=== PATIENT | male | born 1965 | race Caucasian/White ===

== ENCOUNTER 2018-06-28 14:57 | Emergency (ER) | payer OTHER ==
--- NOTE | 2018-06-28 15:32 | EDPHY ---
H & P Stated Complaint: fall, +LOC Time Seen by Provider: 06/28/18 15:22 HPI/ROS: CHIEF COMPLAINT: Fall HISTORY OF PRESENT ILLNESS: The patient is a 52-year-old man who fell 10-15 feet off of a ladder. He states that he tried to talk and well but accidentally hit his head on the way down on a piece of wood. He felt dazed but did not lose consciousness. He does not have any hematoma or laceration has had does have lower neck pain around C7 and T1. He denies any chest pain or thoracic pain lumbar pain. He has been ambulatory. He also has a laceration to his right almendarez. He denies other injuries. No nausea vomiting. Severity: Moderate Modifying factors: None REVIEW OF SYSTEMS: Constitutional: denies: chills, fever, recent illness, recent injury EENTM: denies: blurred vision, double vision, nose congestion Respiratory: denies: cough, shortness of breath Cardiac: denies: chest pain, irregular heart rate, lightheadedness, palpitations Gastrointestinal/Abdominal: denies: abdominal pain, diarrhea, nausea, vomiting, blood streaked stools Genitourinary: denies: dysuria, frequency, hematuria, pain Musculoskeletal: denies: joint pain, muscle pain Skin: See HPI Neurological: denies: headache, numbness, paresthesia, tingling, dizziness, weakness Hematologic/Lymphatic: denies: blood clots, easy bleeding, easy bruising Immunologic/allergic: denies: HIV/AIDS, transplant 10 systems reviewed and negative except as noted EXAM: GENERAL: Well-appearing, well-nourished and in no acute distress. HEAD: Atraumatic, normocephalic. No visible hematoma or laceration EYES: Pupils equal round and reactive to light, extraocular movements intact, sclera anicteric, conjunctiva are normal. ENT: TMs normal, nares patent, oropharynx clear without exudates. Moist mucous membranes. NECK: Mild pain to C7 area, no tenderness or step-offs, Normal range of motion , LUNGS: Breath sounds clear to auscultation bilaterally and equal. No wheezes rales or rhonchi. HEART: Regular rate and rhythm without murmurs, rubs or gallops. ABDOMEN: Soft, nontender, normoactive bowel sounds. No guarding, no rebound. No masses appreciated. BACK: No CVA tenderness, no spinal tenderness, step-offs or deformities EXTREMITIES: Normal range of motion, no pitting or edema. No clubbing or cyanosis. NEUROLOGICAL: Cranial nerves II through XII grossly intact. Normal speech, normal gait. 5/5 strength, normal movement in all extremities, normal sensation , normal reflexes PSYCH: Normal mood, normal affect. SKIN: Laceration right almendarez Source: Patient Exam Limitations: No limitations - Personal History Current Tetanus/Diphtheria Vaccine: Yes Current Tetanus Diphtheria and Acellular Pertussis (TDAP): Yes - Medical/Surgical History Hx Asthma: No Hx Chronic Respiratory Disease: No Hx Diabetes: No Hx Cardiac Disease: No Hx Renal Disease: No Hx Cirrhosis: No Hx Alcoholism: No Hx HIV/AIDS: No Hx Splenectomy or Spleen Trauma: No Other PMH: denies - Family History Significant Family History: No pertinent family hx - Social History Smoking Status: Never smoked Alcohol Use: Sober Drug Use: None Constitutional: Initial Vital Signs Temperature (C) 36.5 C 06/28/18 15:01 Heart Rate 79 06/28/18 15:01 Respiratory Rate 16 06/28/18 15:01 Blood Pressure 156/92 H 06/28/18 15:01 O2 Sat (%) 98 06/28/18 15:01 O2 Delivery Mode Room Air Allergies/Adverse Reactions: No Known Allergies Allergy (Unverified 06/28/18 15:00) Home Medications: Medication Instructions Recorded NK [No Known Home Meds] 06/28/18 Medical Decision Making - Diagnostics Imaging Results: Imaging Impressions Head CT 06/28/18 15:31 Impression: Normal. No acute fracture or evidence of acute intracranial injury. Findings discussed with Emergency Department physician, Ole Mata on 2018, 16:43. Imaging: Discussed imaging studies w/ call worker Radiologist Procedures: Procedure: Laceration repair. Verbal consent was obtained from the patient. The 3 cm right almendarez laceration was anesthetized with 0.5% bupivacaine with epinephrine locally infiltrated. The wound was irrigated copiously according to protocol, draped and explored to its base. It was approximately 1 cm deep. There were no deep structures involved. No tendon, nerve, or vascular injury was identified when explored through full range of motion. No foreign body was identified. The wound was repaired with 5.0 Prolene, 5 sutures, interrupted. The wound repair was moderately complex with some margin revision. The procedure was performed by myself. A dressing was then placed with sterile gauze and bacitracin. ED Course/Re-evaluation: Patient tolerated suture repair well. CT is reassuring. He continues to decline pain medications. Discussed concussion and post concussion recovery. We discussed the CT results. I spoke with Dr. Mosher who agrees with not bracing if tolerated. The patient is happy with this and declines prescriptions. We also discussed his thyroid nodule in follow-up ultrasound which she will arrange to his primary doctor. We discussed indications for returning. Differential Diagnosis: Partial list of the Differential diagnosis considered include but were not limited to; cervical spine fracture, head injury, leg laceration and although unlikely based on the history and physical exam, I also considered spinal cord injury, intracranial hemorrhage, fracture. I discussed these differential diagnoses and the plan with the patient as well as the usual and expected course. The patient understands that the diagnosis is provisional and that in medicine we are not always correct and that further workup is often warranted. Usual and customary warnings were given. All of the patient's questions were answered. The patient was instructed to return to the emergency department should the symptoms at all worsen or return, otherwise to followup with the physician as we discussed. Departure - Departure Disposition: Home, Routine, Self-Care Clinical Impression: Concussion, Laceration of right lower leg, Fracture, thoracic vertebra, compression Condition: Fair Instructions: Care For Your Stitches (DC), Concussion (ED), Vertebral Compression Fracture (ED) Additional Instructions: Have your stitches removed in 10 days Referrals: AMINTA MCCORMICK MD [Other] - As per Instructions Janette Lan MD [Medical Doctor] - 5-7 days, if not improved
[2018-06-28 16:58] VITALS: BP 133/78
[2018-06-28] MEDS ORDERED: ACETAMINOPHEN 500 MG TAB ONE (17:09)
[2018-06-28] MEDS ORDERED: IBUPROFEN 600 MG TAB PO ONE (17:09)
== END 2018-06-28 17:17 | disposition home or self-care (01) ==
PROC: 0HQKXZZ Repair Right Lower Leg Skin, External Approach (ICD-10-PCS; principal; 2018-06-28)
DX: S81.811A Laceration without foreign body, right lower leg, initial encounter (principal); S22.010A Wedge compression fracture of first thoracic vertebra, initial encounter for closed fracture; W11.XXXA Fall on and from ladder, initial encounter